=== PATIENT | female | born 2000 | race Caucasian/White ===

== ENCOUNTER 2024-11-21 08:07 | Emergency (ER) | payer OTHER, SELFPAY ==
--- NOTE | 2024-11-21 08:08 | ED_ITS ---
HPI - Female Genitourinary General Chief complaint: Urogenital-Female Stated complaint: Urinary Problems Time Seen by Provider: 11/21/24 08:08 Source: patient Mode of arrival: ambulatory Limitations: no limitations History of Present Illness HPI Narrative: Rissa is a 23-year-old female patient presenting to the clinic today with complaints of possible UTI. She reports she has had symptoms that began last night. Is complaining of burning, frequency, and urgency. Does also have some abdominal cramping. Denies any fever or flank pain. No concern for STIs. Last menstrual period was 3 weeks ago. Has IUD. Related Data Home Medications ?Medication ?Instructions ?Recorded ?Confirmed ?Last Taken ?Type GLP-1 11/21/24 11/21/24 History Allergies Allergy/AdvReac Type Severity Reaction Status Date / Time No Known Allergies Allergy Verified 11/21/24 08:27 Review of Systems Review of Systems: Pertinent positives per HPI. Patient denies any fever, chills, rash, headache, visual changes, dizziness, cough, runny nose, sore throat, shortness of breath, chest pain, palpitations, nausea, vomiting, diarrhea, constipation. PMFSH Comments At the time of my signature, I reviewed and agree with the nursing past medical, surgical, social, and family history. There is no relevant family history pertinent to the patient complaint. Exam Narrative: General: Well-developed, obese, in no apparent distress. Head: Normocephalic, atraumatic. Cardio: Regular rate and rhythm, s1 and s2 normal, no murmur appreciated. Resp: Clear to auscultation bilaterally, no rhonchi, rales, wheezing or rubs. Abdomen: Soft, pliable, bowel sounds present in all quadrants, suprapubic abdomen tender to palpation, no organomegly, no CVAT tenderness. Course Course Emergency Course: Portions of this record may have been created with voice recognition software. Level of Care: Express Care Visit Vital Signs Vital signs: Vital Signs Temperature 36.8 C 11/21/24 08:19 Pulse Rate 86 11/21/24 08:19 Respiratory Rate 16 11/21/24 08:19 Blood Pressure 113/86 11/21/24 08:19 Pulse Oximetry 100 11/21/24 08:19 Oxygen Delivery Room Air 11/21/24 08:19 Temperature 36.8 C 11/21/24 08:19 Pulse Rate 86 11/21/24 08:19 Respiratory Rate 16 11/21/24 08:19 Blood Pressure 113/86 11/21/24 08:19 Pulse Oximetry 100 11/21/24 08:19 Oxygen Delivery Room Air 11/21/24 08:19 Vital signs reviewed MDM - Female Genitourinary MDM Narrative Medical decision making narrative: At the time of visit patient is resting comfortably on the exam table. Patient appears to be nontoxic. Labs: Urinalysis skewed due to taking azo. We will send for culture. Plan: I suspect patient has UTI. Prescription for Macrobid was sent to the pharmacy. Also paper prescription was given to the patient as she is getting ready to leave to [facility]. Supportive measures were discussed with the patient and they voiced understanding discharge instructions and agrees to treatment plan. Return precautions reviewed Differential Diagnosis Differential diagnosis: Likely urinary tract infection, bacterial vaginosis, trichomoniasis, cervicitis, ovarian cyst, vaginitis, cystitis and dysmenorrhea Lab Data Labs: Lab Results 11/21/24 Range/Units 08:23 POC Urine Color [place] POC Urine Clarity Cloudy POC Urine pH 5.0 POC Ur Specif [place] 1.005 POC Urine Protein 2+ (Negative) POC Ur Glucose (UA) Trace (Negative) POC Urine Ketones Trace (Negative) POC Urine Blood 2+ (Negative) POC Urine Nitrite Positive (Negative) POC Urine Bilirubin 1+ (Negative) POC Urine Urobilinogen 4.0 POC U Leukocyte Esteras 3+ (Negative) Discharge Plan Discharge Clinical Impression: UTI (urinary tract infection) Qualifiers: Urinary tract infection type: acute cystitis Hematuria presence: with hematuria Qualified Code(s): N30.01 - Acute cystitis with hematuria Patient Disposition: Home Condition: Stable Instructions: Antibiotic Form, Urinary Tract Infection in Women (ED) Additional Instructions: Urinalysis skewed due to azo Take Macrobid as prescribed Increase fluids and stay well hydrated Wipe front to back. May use wet wipes. Avoid tub baths If sexually active- pee before and after intercourse. Wear cotton panties Avoid tight clothing up against the genitals Follow up with your PCP in 1 week if symptoms persist. Patient Language: U[place] Prescriptions: New nitrofurantoin monohyd/m-cryst [Macrobid] 100 mg capsule 100 mg PO Q12H 5 Days Qty: 10 0RF Rx Instructions: must administer with a meal/food No Action GLP-1 Follow-up/Referrals: UNKNOWN,DOCTOR [Primary Care Provider] - Time of Disposition: 08:30 Quality NIHSS Nursing Documentation ED NIHSS nursing documentation: reviewed/agree
[2024-11-21 08:19] VITALS: BP 113/86; PULSE 86; RESP 16; TEMP 36.8; O2SAT 100
[2024-11-21 08:26] LABS: EDUAAPPEAR Cloudy; EDUABILI 1+ (Negative); EDUABLOOD 2+ (Negative); EDUACOLOR1 Orange; EDUAGLUCOSE Trace (Negative); EDUAKETONE Trace (Negative); EDUALEUKO 3+ (Negative); EDUANITRATE Positive (Negative); EDUAPROTEIN 2+ (Negative); EDUASPGRAVITY 1.005
== END 2024-11-21 08:34 | disposition home or self-care (01) ==
PROVIDERS: Emergency Provider Nurse Practitioner Family
DX: N30.01 Acute cystitis with hematuria (principal); Z97.5 Presence of (intrauterine) contraceptive device
CPT/HCPCS: 81003; 87086; 99203; G0463